=== PATIENT | male | born 1950 | race Caucasian/White ===

== ENCOUNTER 2017-12-06 11:20 | Emergency (ER) | payer BC, MEDICARE ==
[2017-12-06] MEDS ORDERED: CLONIDINE HCL 0.2 MG TABLET PO ONE (11:53)
--- NOTE | 2017-12-06 11:54 | ER Document Report ---
ED Medical Screen (RME) - General Chief Complaint: High Blood Pressure Stated Complaint: HEADACHE Time Seen by Provider: 12/06/17 11:53 Mode of Arrival: Ambulatory Information source: Patient TRAVEL OUTSIDE OF THE [place] IN LAST 30 DAYS: No - HPI Patient complains to provider of: CHAUDHARY Onset: This morning - pt states BP is elevated and he has a CHAUDHARY - Related Data Allergies/Adverse Reactions: No Known Allergies Allergy (Unverified 12/06/17 11:38) Physical Exam - Vital signs Vitals: Temp Pulse Resp BP Pulse Ox 98.6 F 81 20 153/98 H 95 12/06/17 11:40 12/06/17 11:40 12/06/17 11:40 12/06/17 11:40 12/06/17 11:40 Course - Vital Signs Vital signs: Temp Pulse Resp BP Pulse Ox 98.6 F 81 20 153/98 H 95 12/06/17 11:40 12/06/17 11:40 12/06/17 11:40 12/06/17 11:40 12/06/17 11:40
[2017-12-06 12:28] LABS: ABSOLUTE BASOPHILS # (AUTO) 0.1 10^3/uL (0.0-0.2); ABSOLUTE LYMPHOCYTES (AUTO) 1.4 10^3/uL (0.5-4.7); ABSOLUTE MONOCYTES (AUTO) 0.6 10^3/uL (0.1-1.4); ABSOLUTE NEUT (AUTO) 5.7 10^3/uL (1.7-8.2); BASOPHILS % (AUTO) 0.8 % (0-2); EOSINOPHILS % (AUTO) 0.5 % (0-6); HEMATOCRIT 51.8 % (37.9-51.0); HEMOGLOBIN 17.9 g/dL (13.5-17.0); MEAN CORPUSCULAR HEMOGLOBIN 29.9 pg (27.0-33.4); MEAN CORPUSCULAR HGB CONC 34.5 g/dL (32.0-36.0); MEAN CORPUSCULAR VOLUME 87 fl (80-97); MONOCYTES % (AUTO) 7.5 % (3-13); PLATELET COUNT 206 10^3/uL (150-450); RED BLOOD COUNT 5.98 10^6/uL (4.35-5.55); RED CELL DISTRIBUTION WIDTH 13.6 % (11.5-14.0); SEGMENTED NEUTROPHILS % (AUTO) 73.2 % (42-78); TOTAL CELLS COUNTED % (AUTO) 100 %; WHITE BLOOD COUNT 7.7 10^3/uL (4.0-10.5)
[2017-12-06 12:53] LABS: ALANINE AMINOTRANSFERASE 26 U/L (21-72); ALBUMIN 4.4 g/dL (3.5-5.0); ALKALINE PHOSPHATASE 56 U/L (38-126); ANION GAP 11 (5-19); ASPARTATE AMINO TRANSFERASE 24 U/L (17-59); BILIRUBIN,DIRECT 0.2 mg/dL (0.0-0.4); BLOOD UREA NITROGEN 15 mg/dL (7-20); CALCIUM 9.6 mg/dL (8.4-10.2); CARBON DIOXIDE 23 mmol/L (22-30); CHLORIDE 105 mmol/L (98-107); GLUCOSE 109 mg/dL (75-110); POTASSIUM 4.7 mmol/L (3.6-5.0); SODIUM 139.1 mmol/L (137-145); TOTAL PROTEIN 7.2 g/dL (6.3-8.2)
[2017-12-06] MEDS ORDERED: PROCHLORPERAZINE EDISYLATE INJ 10 MG/2 ML VIAL IV ONE (14:40)
--- NOTE | 2017-12-06 14:47 | ER Document Report ---
ED General - General Mode of Arrival: Ambulatory Information source: Patient TRAVEL OUTSIDE OF THE [place] IN LAST 30 DAYS: No <ROSEMARIE ALONZO - Last Filed: 12/06/17 18:36> <DAO URIAS - Last Filed: 12/06/17 23:44> - General Chief Complaint: High Blood Pressure Stated Complaint: HEADACHE Time Seen by Provider: 12/06/17 11:53 Notes: Patient is a 67 year old male presenting to the emergency department complaining of elevated blood pressure, headaches, dizziness and possible dehydration onset today. Patient states he consumed a lot of caffeine yesterday and he believes this is the cause of his symptoms. This morning he recorded a blood pressure of 220/120 which he states is abnormal for him due to his blood pressure normally being around 140/80. At bedside patient complains of dizziness and a dry mouth which he attributes to being dehydrated. He also reports some blurry vision isolated to yesterday, further stating he has a history of his blood sugars dropping low. Patient denies any chest pain. (ROSEMARIE ALONZO) - Related Data Allergies/Adverse Reactions: No Known Allergies Allergy (Verified 12/06/17 11:55) Past Medical History - General Information source: Patient - Social History Smoking Status: Never Smoker Family History: Reviewed & Not Pertinent Patient has suicidal ideation: No Patient has homicidal ideation: No - Past Medical History Cardiac Medical History: Reports: Hx Hypertension GI Medical History: Reports: Hx Gastroesophageal Reflux Disease, Hx Hiatal Hernia Past Surgical History: Reports: Hx Appendectomy, Hx Cholecystectomy, Hx Tonsillectomy <ROSEMARIE ALONZO - Last Filed: 12/06/17 18:36> Review of Systems - Review of Systems Constitutional: See HPI Cardiovascular: See HPI, Dizziness Respiratory: No symptoms reported Gastrointestinal: No symptoms reported Genitourinary: No symptoms reported Male Genitourinary: No symptoms reported Musculoskeletal: No symptoms reported Skin: No symptoms reported Hematologic/Lymphatic: No symptoms reported Neurological/Psychological: See HPI, Headaches <ROSEMARIE ALONZO - Last Filed: 12/06/17 18:36> Physical Exam <ROSEMARIE ALONZO - Last Filed: 12/06/17 18:36> <DAO URIAS - Last Filed: 12/06/17 23:44> - Vital signs Vitals: Temp Pulse Resp BP Pulse Ox 98.6 F 81 20 153/98 H 95 12/06/17 11:40 12/06/17 11:40 12/06/17 11:40 12/06/17 11:40 12/06/17 11:40 - Notes Notes: GENERAL: Alert, interacts well. No acute distress. HEAD: Normocephalic, atraumatic. EYES: Pupils equal, round, and reactive to light. Extraocular movements intact. ENT: Oral mucosa moist, tongue midline. NECK: Full range of motion. Supple. Trachea midline. LUNGS: Clear to auscultation bilaterally, no wheezes, rales, or rhonchi. No respiratory distress. HEART: Regular rate and rhythm. No murmurs, gallops, or rubs. ABDOMEN: Soft, non-tender. Non-distended. Bowel sounds present in all 4 quadrants. EXTREMITIES: Moves all 4 extremities spontaneously. NEUROLOGICAL: Alert and oriented x3. Normal speech. PSYCH: Normal affect, normal mood. SKIN: Warm, dry, normal turgor. No rashes or lesions noted. (ROSEMARIE ALONZO) Course - Laboratory Result Diagrams: 12/06/17 12:05 12/06/17 12:05 <ROSEMARIE ALONZO - Last Filed: 12/06/17 18:36> - Laboratory Result Diagrams: 12/06/17 12:05 12/06/17 12:05 - EKG Interpretation by [facility] EKG shows normal: Sinus rhythm Rate: Normal Rhythm: NSR - Normal axis and intervals <DAO URIAS - Last Filed: 12/06/17 23:44> - Re-evaluation Re-evalutation: 12/06/17 15:08 After Compazine administration patient states that his headache no longer exists. He contributes his dizziness upon reevaluation due to not eating all day. Will provide patient food and if his symptoms resolve will be discharged pending no concerning findings on EKG. Advised to refrain from any stimulants or excessive coffee as it seems that this could have possibly caused his symptoms as his symptoms manifested after large amounts of coffee yesterday. 12/06/17 15:45 Patient's dizziness resolved after eating. EKG shows no concerning findings. Patient will be discharged at this time. (DAO URIAS) - Vital Signs Vital signs: Temp Pulse Resp BP Pulse Ox 98.6 F 60 15 130/84 H 97 12/06/17 11:40 12/06/17 15:54 12/06/17 15:54 12/06/17 15:01 12/06/17 15:54 - Laboratory Laboratory results interpreted by me: 12/06/17 12/06/17 12:05 12:05 RBC 5.98 H Hgb 17.9 H Hct 51.8 H Total Bilirubin 2.0 H Discharge <ROSEMARIE ALONZO - Last Filed: 12/06/17 18:36> <DAO URIAS - Last Filed: 12/06/17 23:44> - Discharge Clinical Impression: Hypertension Qualifiers: Hypertension type: unspecified Qualified Code(s): I10 - Essential (primary) hypertension Headache Qualifiers: Headache type: unspecified Headache chronicity pattern: acute headache Intractability: not intractable Qualified Code(s): R51 - Headache Disposition: HOME, SELF-CARE Instructions: High Blood Pressure ([facility]) Additional Instructions: Please continue to take your high blood pressure medication as prescribed and avoid excessive stimulants. Please return to the emergency department for any worsening symptoms or concerns. Scribe Attestation: 12/06/17 23:44 I personally performed the services described in the documentation, reviewed and edited the documentation which was dictated to the scribe in my presence, and it accurately records my words and actions. (DAO URIAS) Scribe Documentation - Scribe Written by Alannah:: Alannah Davidson, 12/06/2017 15:06 acting as scribe for :: Naif <ROSEMARIE ALONZO - Last Filed: 12/06/17 18:36>
[2017-12-06 15:43] VITALS: BP 130/84
--- NOTE | 2017-12-07 00:05 | EKG REPORT ---
SEVERITY:- ABNORMAL ECG - SINUS RHYTHM LEFT ANTERIOR FASCICULAR BLOCK : Confirmed by: Olga Gomez MD 07-Dec-2017 00:05:07
== END 2017-12-06 15:54 | disposition home or self-care (01) ==
LOC: ER 11:20
DX: I10 Essential (primary) hypertension (principal); R51 Headache; R42 Dizziness and giddiness; R68.2 Dry mouth, unspecified
CPT/HCPCS: 93005; 99284; 96374; 36415; 85025; 80053; 93010; J0780